=== PATIENT | male | born 1965 | race Caucasian/White ===

== ENCOUNTER 2019-10-23 12:39 | Outpatient (CLI) | payer OTHER ==
--- NOTE | 2019-10-23 13:15 | SLEEP CARE CONSULTATION ---
Information from patient questionnaire entered by Vijaya Solis. I have reviewed and concur with the information entered by Vijaya Solis. This document represents the service I personally performed and the decisions made by me, Shruthi Petersen MD, [facility]. History of Present Illness Service Date and Time: 10/23/2019 1239 Reason for Visit: New patient Chief Complaint: reports: Snoring Duration of Symptoms: many years Usual bedtime: 2100 Time it takes to fall asleep: few minutes Snores at night: Yes Observed to quit breathing while asleep: No Sleeps alone due to snoring: No Number of times waking at night: 1-2 Reasons for waking at night: reports: Bathroom Toss, Turn, or Twitch while sleeping: No Recalls having dreams: Yes Usually gets out of bed at: 0430 Feels refreshed in the morning: No Morning headache: No Sleepy or fatigued during the day: No Ever fallen asleep while driving: No Takes day naps: No Dreams during day naps: No Prior sleep studies: No Additional HPI information: I had the pleasure of seeing Mr. Haddad today regarding the possibility of him having a sleep disorder. As you know, he is a 54 year old gentleman who complains of loud snore. He also has hypertension requiring 3 medications to control. His has never seen him quit breathing. He is not excessively sleepy during the day. He is s/p tonsillectomy. Subjective Initial Opp Sleepiness Scale score: 2 Past Medical History Past Medical History: reports: Hypertension, Other (S/P tonsillectomy) Social History The patient's occupation is a [employer]. Patient is and lives in [place]. Have you smoked in the past 12 months: No Years of smokin Quit date: 2002 Alcohol use: Yes Alcohol amount and frequency: 1-2/evening Caffeine use: Yes Family History Family history of sleep disordered breathing: No Allergies and Home Medications Drug allergies reviewed: Yes (lisinopril) Home medication list reviewed: Yes (HCTZ, amlodipine, metoprolol, aspirin) Review of Systems Weight gain over past 5 years: 10 Cardiovascular: reports: high blood pressure Respiratory: denies: shortness of breath, wheeze, sputum production, chronic cough, other Gastrointestinal: denies: heartburn, difficulty swallowing, nausea, vomitting, diarrhea, abdominal pain, other Urinary: denies: incontinence, frequency, urgency, impotence, other Neurological: denies: headaches, seizure, head trauma, disorientation, speech dysfunction, gait or balance problems, fainting or unconsciousness, other Psychiatric: denies: Attention Deficit Hyperactivity, anxiety, depression, mood disorder, claustrophobia, other Ear/Nose/Throat: reports: nasal congestion (on back) Physical Exam Vital signs obtained and entered by: Detailed physical exam was not performed to comply with the COVID-19 precau Height: 6 ft 1 in Weight: 250 lb Body Mass Index: 33.0 BMI Classification: Obese Nasal exam: positive: erythema Impression and Plan IMPRESSION: 1. Obstructive Sleep Apnea-Hypopnea Syndrome, as suggested by history of loud and irregular snoring, unrefreshed sleep, and history of hypertension. Narrow oropharynx and obesity are common predisposing factors for obstructive sleep apnea-hypopnea syndrome. Pathophysiology of sleep-disordered breathing was discussed. I recommend proceeding to polysomnography to confirm the diagnosis and to assess severity. If he has significant sleep disordered breathing, a manual CPAP titration study will also be performed to find the optimal treatment pressure. I informed the patient of what the sleep studies involve and after some discussion, he agreed to proceed. Plan: 1. Schedule an in-laboratory polysomnography. 2. Avoid long distance driving or when feeling sleepy. 3. Avoid alcohol, sedative and muscle relaxant around bedtime. 4. Attempt to lose weight. 5. Return in 1 to 2 weeks after the study to discuss results and initiate therapy. Time Spent with Patient (minutes): 15
== END 2019-10-23 12:40 | disposition home or self-care (01) ==
LOC: SC 12:39
PROVIDERS: ATTEND Internal Medicine Pulmonary Disease
DX: R06.83 Snoring (principal); G47.8 Other sleep disorders; E66.9 Obesity, unspecified; Z68.33 Body mass index [BMI] 33.0-33.9, adult; I10 Essential (primary) hypertension
CPT/HCPCS: 99203; 99212

== ENCOUNTER 2020-05-16 22:43 | Emergency (ER) | payer OTHER ==
[2020-05-16] MEDS ORDERED: BUFFERED LIDOCAINE 10 ML SYRINGE SUBQ STA ×2 (23:01→23:39)
--- NOTE | 2020-05-16 23:49 | ED Physician Documentation ---
PD HPI SKIN - Stated complaint Stated Complaint: LT HAND LAC - Chief complaint Chief Complaint: Wound - History obtained from History obtained from: Patient - Additional information Additional information: 55-year-old man presents status post fall onto outstretched hand while playing with his dog. He states that he tripped and fell sustaining a laceration to the webspace between the fourth and fifth digits just ham curer. no suspicion for foreign body. no joint injury. moving hand and fingers normally with normal sensation. Review of Systems Skin: reports: Laceration (s) Musculoskeletal: denies: Extremity pain, Joint pain Neurologic: denies: Numbness PD PAST MEDICAL HISTORY - Past Medical History Past Medical History: Yes Cardiovascular: Hypertension - Past Surgical History Past Surgical History: No - Present Medications Home Medications: Ambulatory Orders Medication Instructions Recorded Confirmed Amlodipine Besylate [Norvasc] 10 mg PO DAILY 05/16/20 05/16/20 Aspirin [Aspirin EC] 81 mg PO DAILY 05/16/20 05/16/20 Hydrochlorothiazide 12.5 mg PO DAILY 05/16/20 05/16/20 Metoprolol Tartrate [Lopressor] 50 mg PO BID 05/16/20 05/16/20 - Allergies Allergies/Adverse Reactions: Allergies Allergy/AdvReac Type Severity Reaction Status Date / Time lisinopril Allergy Unknown Verified 05/16/20 22:55 - Social History Does the pt smoke?: No Smoking Status: Never smoker Does the pt drink ETOH?: Yes Does the pt have substance abuse?: No - Immunizations Immunizations are current?: Yes PD ED PE NORMAL - Vitals Vital signs reviewed: Yes - General General: Alert and oriented X 3, No acute distress, Well developed/nourished - HEENT HEENT: Atraumatic, PERRL, EOMI - Extremities Extremities: No deformity, Normal ROM s pain, Other (5cm laceration to webspace of 4th/5th digit with involvement of subQ fat. no tendon/muscle involvement. normal opposition of thenar/hypothenar eminences. normal sensation and movement of all joints of fingers) - Neuro Neuro: Alert and oriented X 3 - Psych Psych: Normal mood, Normal affect Results - Vitals Vitals: Vital Signs - 24 hr 05/16/20 05/16/20 05/16/20 22:53 22:56 23:14 Temperature 35.9 C L 36.0 C L 36.0 C L Heart Rate 101 H 98 88 Respiratory 18 18 18 Rate Blood Pressure 162/104 H 162/104 H 145/99 H O2 Saturation 98 98 99 Oxygen O2 Source Room air Procedures - Laceration (location) Hand left Length in cm: 5 Wound type: Curved, Irregular, Into subcut fat Neurovascular status: Sensory intact, Motor intact, Vascular intact Tendon involvement: Tendon intact Anesthesia: Lidocaine 1%, With bicarb Wound preparation: Irrigated copiously NS, Wound explored, To the base. No: FB identified Deep layer closure: # sutures - enter number (2), Other (monocryl 3-0) Skin layer closure: Nylon, Interrupted, Size #-0 - enter number (4), Sutures - enter # (7) Other: Patient tolerated well, No complications, Neurovascular intact, Dressing applied, Tetanus UTD PD MEDICAL DECISION MAKING - ED course ED course: 55-year-old man presented with laceration of webspace between fourth and fifth digits of left hand after falling onto outstretched hand. He had a tetanus shot 1 year ago. Laceration repaired without complication. Return precautions given. He will follow-up in 14 days for suture removal. Departure - Departure Disposition: 01 Home, Self Care Clinical Impression: Laceration of hand Condition: Good Instructions: ED Laceration Hand Comments: You are seen in the emergency department for a laceration of your hand. Return to the emergency department in 14 days for suture removal or [place]up [place] base. Return to the emergency department if you develop any signs of infection that we discussed or if you have other concerns.
[2020-05-16] MEDS ORDERED: BACITRACIN ZINC OINT 1 PACKET TOP STA (23:50)
[2020-05-17 00:02] VITALS: BP 143/88
== END 2020-05-17 00:01 | disposition home or self-care (01) ==
LOC: ED 22:43
DX: S61.412A Laceration without foreign body of left hand, initial encounter (principal); W01.0XXA Fall on same level from slipping, tripping and stumbling without subsequent striking against object, initial encounter; Y93.89 Activity, other specified; I10 Essential (primary) hypertension; Z79.82 Long term (current) use of aspirin
CPT/HCPCS: 12042

== ENCOUNTER 2023-03-31 12:58 | Outpatient (CLI) | payer OTHER ==
--- NOTE | 2023-03-31 21:23 | MRI Report ---
PROCEDURE: KNEE WO - RT INDICATIONS: RIGHT KNEE OSTEOARTHRITIS TECHNIQUE: Noncontrast sagittal PD fast spin echo and T2 fast spin echo with fat saturation, sagittal 3-D gradie nt sequence with fat saturation; coronal T1 spin echo and PD fast spin echo with fat saturation, and axial PD fast spin echo with fat saturation through the knee. COMPARISON: None. FINDINGS: Image quality: Excellent. Menisci: Peripheral displacement of medial meniscus is seen bowing medial collateral ligament. There is no evidence of focal medial meniscal tear. There is nonvisualization abnormal lateral meniscus sug gestive of chronic complex tear versus prior lateral meniscectomy.. There is torn posterior lateral m eniscal root ligament. Cruciate ligaments: The anterior cruciate ligament is diffusely thickened with intrasubstance T2 hyp erintense signal. The posterior cruciate ligament is intact. Medial structures: The medial collateral ligament appears thickened with surrounding soft tissue [place]. Visualized portions of the pes anserinus tendons appear normal. No abnormal bursal fluid. Lateral structures: The lateral collateral ligament, long and short heads of the biceps femoris tend on appear thickened. The popliteus tendon is also thickened. Iliotibial band appears normal. Anterior structures: The quadriceps tendon is intact. Proximal and distal patellar tendinosis at its patella and tibial insertion is seen. Patellar alignment is normal. No femoral trochlear dysplasia or ventral trochlear prominence. No edema in the infrapatellar fat pad. Bones and cartilage: There is a well-corticated bony fragment with internal T2 hyperintense signal an d subcortical cystic changes adjacent to posterior aspect of lateral femoral condyle and may represen t sequela from remote injury. Marrow edema is seen in posterior weightbearing portion of lateral femo ral condyle and adjacent lateral tibial plateau without discrete fracture line. Edema and subcortical cystic area also seen involving posterior and medial periphery of medial femoral condyle. No gross a cute fracture or dislocation. Moderate to severe tricompartmental osteoarthritis and chondromalacia i s seen most notably in lateral femoral tibial compartment. Joint space: There is small knee joint fluid. Suggestion of small loose body in posterior aspect of medial femoral tibial compartment dorsal to the posterior cruciate ligament is seen and measures 9 m m in size. No Collins's cyst. Normal appearing synovial plicae are incidentally noted. IMPRESSION: 1. Moderate to severe tricompartmental osteoarthritis and chondromalacia most notably in lateral femo ral tibial compartment. Bony contusion in lateral femoral tibial compartment and posterior lateral pe riphery of medial femoral condyle. Likely old injury involving posterior aspect of lateral femoral co ndyle with well corticated bony fragment. No acute fracture or dislocation. 2. Small joint effusion and suggestion of loose body as above. 3. Suggestion of moderate grade intrasubstance partial thickness tear involving ACL and chronic degen erative changes. No full-thickness ACL rupture. The PCL is intact. 4. Nonvisualization of normal lateral meniscus most likely represent chronic complex tear of the late ral meniscus. Torn posterior lateral meniscal root ligament. No definite focal medial meniscal tear. 5. Low to moderate grade MCL and LCL sprain. Distal biceps femoris tendinosis. Popliteus tendinosis. 6. Proximal and distal patellar tendinosis. Quadriceps tendon is intact. Reviewed by: Juan Ni MD on 03/31/2023 9:21 PM PST Approved by: Juan Ni MD on 03/31/2023 9:21 PM PST Station ID: [id number]
== END 2023-03-31 12:59 | disposition home or self-care (01) ==
LOC: DI 12:58
PROVIDERS: ATTEND Nurse Practitioner Family
DX: M17.11 Unilateral primary osteoarthritis, right knee (principal); M94.261 Chondromalacia, right knee; S70.11XA Contusion of right thigh, initial encounter; M25.461 Effusion, right knee; S83.511A Sprain of anterior cruciate ligament of right knee, initial encounter; S83.411A Sprain of medial collateral ligament of right knee, initial encounter; S83.421A Sprain of lateral collateral ligament of right knee, initial encounter; M67.863 Other specified disorders of tendon, right knee

== ENCOUNTER 2023-10-09 09:45 | Emergency (ER) | payer OTHER ==
--- NOTE | 2023-10-09 09:50 | ED Physician Documentation ---
PD HPI NVD - Stated complaint Stated Complaint: CHEST PAIN AFTER EATING FOOD - History obtained from History obtained from: Patient - History of Present Illness Timing - onset: Today Timing - duration: Hours (about 9 hours, since dinner last evening.) Timing - details: Abrupt onset, Still present, Constant (has had lower sternal chest pressure onset while swallowing a bite of steak, that has persisted, with spitting up saliva periodically overnight and still this AM. Tried sips of fluids and has to spit back out.) Associated symptoms: Chest pain Contributing factors: No: Sick contact, Bad food Similar symptoms before: No diagnosis (has had similar a few times in past couple months, lasts 1-5 minutes then resolves. No regular reflux/heartburn feelings.) PD PAST MEDICAL HISTORY - Past Medical History Cardiovascular: Hypertension - Past Surgical History Past Surgical History: No - Present Medications Home Medications: Ambulatory Orders Medication Instructions Recorded Confirmed Amlodipine Besylate [Norvasc] 10 mg PO DAILY 05/16/20 10/09/23 Aspirin [Aspirin EC] 81 mg PO DAILY PM 05/16/20 10/09/23 Atorvastatin Calcium 40 mg PO HS 10/09/23 10/09/23 Metoprolol Succinate [Toprol Xl] 50 mg PO DAILY PM 10/09/23 10/09/23 Pantoprazole [Protonix] 40 mg PO DAILY 30 Days #30 tablet 10/09/23 Sucralfate [Carafate] 1 gm PO HS 20 Days #200 ml 10/09/23 hydroCHLOROthiazide [Hydrodiuril] 25 mg PO DAILY 10/09/23 10/09/23 metFORMIN [Glucophage] 500 mg PO DAILY 10/09/23 10/09/23 - Allergies Allergies/Adverse Reactions: Allergies Allergy/AdvReac Type Severity Reaction Status Date / Time lisinopril Allergy Unknown Verified 10/09/23 09:59 - Social History Does the pt smoke?: No Smoking Status: Never smoker Does the pt drink ETOH?: Yes Does the pt have substance abuse?: No - Immunizations Immunizations are current?: Yes PD ED PE NORMAL - Vitals Vital signs reviewed: Yes - General General: Alert and oriented X 3, Well developed/nourished, Other (holding spit cup with clear saliva in it. ) - Neck Neck: Supple, no meningeal sign, No adenopathy - Cardiac Cardiac: RRR, No murmur - Respiratory Respiratory: Clear bilaterally - Abdomen Abdomen: Soft, Non tender - Derm Derm: Normal color, Warm and dry - Extremities Extremities: No edema, No calf tenderness / cord Results - Vitals Vitals: Oxygen O2 Source Room air - EKG (time done) 089:55 EKG releavant findings:: EKG personally interpreted by author of this note. Relevant findings are: Rate: Rate (enter#) (96) Rhythm: NSR [place]: Normal Intervals: Normal SD QRS: Poor R wave progression Ischemia: Normal ST segments. No: ST elevation c/w ischemia, ST depression - Labs Labs: Laboratory Tests 10/09/23 10/09/23 10:05 10:05 WBC 8.4 RBC 4.90 Hgb 15.3 Hct 45.2 MCV 92.2 MCH 31.2 H MCHC 33.8 RDW 11.9 L Plt Count 213 MPV 10.4 Neut # (Auto) 5.9 Lymph # (Auto) 1.4 L [place] # (Auto) 1.0 Eos # (Auto) 0.1 Baso # (Auto) 0.0 Absolute Nucleated RBC 0.00 Nucleated RBC % 0.0 Sodium 138 Potassium 3.7 Chloride 102 Carbon Dioxide 26 Anion Gap 10.0 BUN 18 Creatinine 0.8 Estimated GFR (MDRD) 99 Glucose 188 H Calcium 10.8 H Total Bilirubin 1.0 AST 65 H ALT 103 H Alkaline Phosphatase 87 Total Protein 8.1 Albumin 4.8 Globulin 3.3 Albumin/Globulin Ratio 1.5 Lipase 40 PD Medical Decision Making - ED course Complexity details: re-evaluated patient (given IV fluids, Glucagon and Ativan as muscle relaxants. He was able to swallow cola after short time when he felt the pressure resolve. Seems to be unimpacted. Has some aching pain with swallowing though, which is expected with bruising of esophagus from the prolonged impaction.), considered differential (sounds clearly food impaction of esophagus. Can tried medication. Has had brief similar. I would suggest for him EGD eval for this as outpt unless needs EGD therapeutically today.), d/w patient Departure - Departure Disposition: 01 Home, Self Care Clinical Impression: Food impaction of esophagus Condition: Stable Record reviewed to determine appropriate education?: Yes Instructions: ED Foreign Body Esophageal Rslv Follow-Up: Surgical Care [Provider Group] Prescriptions: Sucralfate [Carafate] 1 gm PO HS 20 Days #200 ml Pantoprazole [Protonix] 40 mg PO DAILY 30 Days #30 tablet Comments: It is good that the food impaction has cleared with just relaxing the muscle more. However the spasming of the muscle as well as the ability for her to get stuck commonly is reflected as some ongoing irritation such as subclinical reflux. It can be just at the very bottom of the esophagus and not to the point where you actually feel "heartburn". With these type episodes we typically suggest some acid reducing medicine along with some antacid to coat the esophagus particularly at bedtime. I would suggest following up with the general surgery for discussion about an scope who of the esophagus and stomach to look for more chronic irritations or other abnormalities that may lead to improper relaxation of the esophagus. I sent prescriptions to your preferred pharmacy. soft food mechanically today and tomorrow, as the end of the esophagus will be irritated/bruised and he will be unhappy to get solid food for couple of days. Forms: PCP List Discharge Date/Time: 10/09/23 12:28
[2023-10-09] MEDS: SODIUM CHLORIDE 0.9% 1,000 ML IV STA (10:17)
[2023-10-09] MEDS: LORazepam 2 MG/ML VIAL IVP STA (10:19)
[2023-10-09] MEDS: GLUCAGON 1 MG/ML VIAL IVP STA (10:28)
[2023-10-09 10:33] LABS: BASOPHILS % (AUTO) 0.5 %; EOSINOPHILS # (AUTO) 0.1 10^3/uL (0.0-0.7); EOSINOPHILS % (AUTO) 0.8 %; HCT - HEMATOCRIT 45.2 % (42.0-52.0); HGB - HEMOGLOBIN 15.3 g/dL (14.0-18.0); LYMPHOCYTES # (AUTO) 1.4 10^3/uL (1.5-3.5); LYMPHOCYTES % (AUTO) 16.1 %; MEAN CORPUSCULAR HEMOGLOBIN 31.2 pg (27.0-31.0); MEAN CORPUSCULAR HGB CONC 33.8 g/dL (32.0-36.0); MEAN CORPUSCULAR VOLUME 92.2 fL (80.0-94.0); MEAN PLATELET VOLUME 10.4 fL (7.4-11.4); MONOCYTES % (AUTO) 11.6 %; NEUTROPHILS # (AUTO) 5.9 10^3/uL (1.5-6.6); NEUTROPHILS % (AUTO) 70.8 %; PLT - PLATELET COUNT 213 10^3/uL (130-450); RED CELL DISTRIBUTION WIDTH 11.9 % (12.0-15.0); WHITE BLOOD COUNT 8.4 x10^3/uL (4.8-10.8)
[2023-10-09 10:48] LABS: ALBUMIN 4.8 g/dL (3.2-5.5); ALBUMIN/GLOBULIN RATIO 1.5 (1.0-2.2); CALCIUM 10.8 mg/dL (8.5-10.3); CREATININE 0.8 mg/dL (0.6-1.3); POTASSIUM 3.7 mmol/L (3.5-4.5); TOTAL PROTEIN 8.1 g/dL (6.4-8.9)
[2023-10-09] MEDS: FAMOTIDINE 20 MG/2 ML VIAL IVP STA (12:16)
[2023-10-09] MEDS: MAG HYDROX/AL HYDROX/SIMETH 30 ML UDC PO STA (12:16)
[2023-10-09 12:36] VITALS: BP 145/87; O2SAT 97
== END 2023-10-09 12:28 | disposition home or self-care (01) ==
LOC: ED 09:45
DX: T18.128A Food in esophagus causing other injury, initial encounter (principal); W44.F3XA Food entering into or through a natural orifice, initial encounter
CPT/HCPCS: 36415; 80053; 83690; 85025; 93005; 96374; 96375; 99284; A9270; J1610; J2060